=== PATIENT | male | born 1985 | race Caucasian/White ===

== ENCOUNTER 2020-05-02 12:25 | Inpatient (IN) ==
[2020-05-02] MEDS ORDERED: Vancomycin 1,250 MG in NS 0.9% 250 ml 250 ML IVPB ONE (14:50)
[2020-05-02] MEDS ORDERED: Cefepime 2 GM in Dextrose 2 GM/50 ML BAG IV ONE (14:50)
[2020-05-02 15:06] LABS: ABS Basophils 0.1 10^3/ul (0-0.2); ABS Eosinophils 0.2 10^3/ul (0-0.6); ABS Lymphocytes 1.4 10^3/ul (1.0-4.8); ABS Neutrophils 9.8 10^3/ul (1.5-7.7); Eosinophil % 1.3 %; Hematocrit 43 % (42-52); Hemoglobin 15.2 g/dL (14.0-18.0); Lymphocyte % 11.1 %; Mean Corpuscular HGB Conc 35 g/dL (31-36); Mean Corpuscular Hemoglobin 33 pg (27-31); Mean Corpuscular Volume 93 fL (80-94); Mean Platelet Volume 8.2 fL (7.4-10.4); Platelet Count 224 10^3/uL (150-450); Red Blood Count 4.63 10^6 /uL (4.18-5.48); Red Cell Distribution Width 13 % (10-15); White Blood Count 12.3 10^3/uL (3.5-10.8)
[2020-05-02 15:36] LABS: Activated Partial Thrombo Time 35.7 seconds (26.0-38.0); INR 1.14 (0.82-1.09)
[2020-05-02 15:44] LABS: ALT 16 U/L (7-52); Albumin 4.6 g/dL (3.2-5.2); Albumin/Globulin Ratio 1.5 (1-3); Alkaline Phosphatase 77 U/L (34-104); BUN/Creatinine Ratio 9.4 (8-20); Blood Urea Nitrogen 11 mg/dL (6-24); C Reactive Protein 44.17 mg/L (<8.01); CO2 Carbon Dioxide 28 mmol/L (22-32); Calcium 9.5 mg/dL (8.6-10.3); Chloride 100 mmol/L (101-111); EGFR African American 87.4 (>60); EGFR Non-African American 72.2 (>60); Glucose 93 mg/dL (70-100); Sodium 135 mmol/L (135-145); Total Protein 7.6 g/dL (6.4-8.9)
[2020-05-02 16:04] LABS: Anion Gap 7 mmol/L (2-11)
[2020-05-02] MEDS ORDERED: diPHENhydraMINE 25 mg TAB PO PRN (16:10)
[2020-05-02] MEDS ORDERED: diPHENhydraMINE IV 50 MG/ML 1 ml VIAL (BENADRYL) IV PRN (16:10)
[2020-05-02 16:12] LABS: AST 27 U/L (13-39)
[2020-05-02] MEDS ORDERED: Bupivacaine 0.5% SDV PF 30ML VIAL ONE (16:26)
[2020-05-02] MEDS ORDERED: Propofol 10 MG/ML 20 ML BTL ONE (16:30)
[2020-05-02 16:32] LABS: Urine Appearance Clear; Urine Bilirubin Negative (Negative); Urine Blood Negative (Negative); Urine Color Straw; Urine Glucose Negative (Negative); Urine Ketones Trace (Negative); Urine Nitrite Negative (Negative); Urine Protein Negative (Negative); Urine Specific Gravity 1.006 (1.010-1.030); Urine Urobilinogen Negative (Negative)
[2020-05-02] MEDS ORDERED: Vancomycin per Pharmacy 1 EA NOTE FOLLOW UP PRN (16:37)
[2020-05-02] MEDS ORDERED: fentaNYL 250 mcg/5 ml 50 MCG/ML 5 ml VIAL (250 MCG) ONE (16:40)
[2020-05-02] MEDS ORDERED: Midazolam 2 mg/2 ml VIAL 1 mg/ml 2 ml VIAL (2 mg) ONE (16:40)
[2020-05-02] MEDS ORDERED: Metoclopramide 5 MG/ML VIAL (10 mg) ONE (17:15)
[2020-05-02] MEDS ORDERED: Ondansetron 4 mg VIAL 2 MG/ML 2 ml VIAL ONE (17:15)
[2020-05-02] MEDS ORDERED: Dexamethasone IV 4 MG/ML VIAL 1 ml VIAL ONE (17:15)
[2020-05-02] MEDS ORDERED: Sevoflurane BOTTLE ONE (17:52)
[2020-05-02] MEDS ORDERED: Albuterol HFA INHALER 8 gm MDI INH PRN (17:56)
[2020-05-02] MEDS ORDERED: Naloxone 0.4 mg VIAL 0.4 mg/ml 1 ml VIAL IV PRN (18:09)
[2020-05-02] MEDS ORDERED: fentaNYL 100 mcg/2 ml 50 MCG/ML VIAL IV PRN (18:09)
[2020-05-02] MEDS: Lactated Ringers 1000 ml BAG 1,000 ML IV SCH (20:05)
[2020-05-03] MEDS ORDERED: Vancomycin 1000 MG in NS 0.9% 250 ML IVPB SCH (01:00)
[2020-05-03] MEDS: Lactated Ringers 1000 ml BAG 1,000 ML IV SCH ×2 (05:42→16:19)
[2020-05-03] MEDS: Cefepime 2 GM in Dextrose 2 GM/50 ML BAG IV SCH ×2 (05:42→18:07)
[2020-05-03] MEDS ORDERED: Influenza VAC *QUAD* 2020-21* 0.5 ML SYRINGE IM ONE (09:00)
[2020-05-03] MEDS: oxyCODONE/Acetamin 5/325 mg TAB PO PRN ×2 (15:18→19:50)
[2020-05-03] MEDS ORDERED: Vancomycin Trough Check NOTE FOLLOW UP SCH (16:30)
[2020-05-03] MEDS: Mometasone 220 MCG MDI INH SCH (18:05)
[2020-05-04] MEDS: Lactated Ringers 1000 ml BAG 1,000 ML IV SCH ×2 (04:09→14:46)
[2020-05-04] MEDS: oxyCODONE/Acetamin 5/325 mg TAB PO PRN ×3 (04:14→20:25)
[2020-05-04] MEDS: Cefepime 2 GM in Dextrose 2 GM/50 ML BAG IV SCH ×2 (05:47→17:52)
[2020-05-04 06:00] LABS: ABS Eosinophils 0.3 10^3/ul (0-0.6); ABS Monocytes 0.8 10^3/ul (0-0.8); ABS Neutrophils 4.4 10^3/ul (1.5-7.7); Eosinophil % 4.1 %; Hematocrit 38 % (42-52); Lymphocyte % 26.5 %; Mean Corpuscular HGB Conc 34 g/dL (31-36); Mean Corpuscular Hemoglobin 32 pg (27-31); Mean Corpuscular Volume 95 fL (80-94); Mean Platelet Volume 8.4 fL (7.4-10.4); Platelet Count 200 10^3/uL (150-450); Red Blood Count 4.04 10^6 /uL (4.18-5.48); Red Cell Distribution Width 14 % (10-15); White Blood Count 7.6 10^3/uL (3.5-10.8)
[2020-05-04] MEDS: Mometasone 220 MCG MDI INH SCH (18:47)
[2020-05-05] MEDS: Lactated Ringers 1000 ml BAG 1,000 ML IV SCH (01:29)
[2020-05-05] MEDS: Cefepime 2 GM in Dextrose 2 GM/50 ML BAG IV SCH (05:47)
[2020-05-05] MEDS ORDERED: Buffered Lidocaine 1% SYRIN 1 ml INTRADERM ONE (10:53)
[2020-05-05 11:14] VITALS: BP 131/69
[2020-05-05] MEDS: oxyCODONE/Acetamin 5/325 mg TAB PO PRN (11:47)
[2020-05-05] MEDS ORDERED: ceFAZolin 2 GM PREMIX 2 GM/50 ML BAG IVPB SCH (14:00)
== END 2020-05-05 13:55 | disposition home or self-care (01) | DRG 316 ==
LOC: ED 12:25 → SSU 17:49
PROVIDERS: ADMIT Orthopaedic Surgery; ATTEND Orthopaedic Surgery